=== PATIENT | male | born 1985 | race Two or more races ===

== ENCOUNTER 2018-03-30 14:30 | Emergency (ER) | payer SELFPAY ==
[2018-03-30] MEDS: LIDOCAINE 1%/EPI 1:100,000 20 ML VIAL. INJ (15:17)
[2018-03-30] MEDS: DIPHTH,PERTUSS(ACELL),TET TOX 0.5 ML DISP.SYRIN. VAX IM (15:18)
== END 2018-03-30 17:26 | disposition home or self-care (01) ==
LOC: ER 17:26
DX: S81.012A Laceration without foreign body, left knee, initial encounter (principal); W29.8XXA Contact with other powered hand tools and household machinery, initial encounter; Y93.89 Activity, other specified; Y99.8 Other external cause status; Y92.89 Other specified places as the place of occurrence of the external cause
CPT/HCPCS: 12002; 73564; 90471; 90715; 99284; J3490